=== PATIENT | male | born 1980 | race Two or more races ===

== ENCOUNTER 2017-05-28 18:06 | Emergency (ER) | payer MEDICAID ==
[~2017-05-28] VITALS: Ht 182.9 cm; Wt 108.9 kg
[2017-05-28 18:13] VITALS: BP 136/75
== END 2017-05-28 23:12 | disposition home or self-care (01) ==
LOC: ER 18:10
DX: S20.219A Contusion of unspecified front wall of thorax, initial encounter (principal); S60.222A Contusion of left hand, initial encounter; V49.49XA Driver injured in collision with other motor vehicles in traffic accident, initial encounter; Y93.89 Activity, other specified; Y99.8 Other external cause status; Y92.89 Other specified places as the place of occurrence of the external cause
CPT/HCPCS: 71010; 73130